=== PATIENT | female | born 1995 | race Caucasian/White ===

== ENCOUNTER 2023-09-02 01:57 | Emergency (ER) | payer SELFPAY ==
--- NOTE | ~2023-09-02 | XR_ITS ---
EXAMINATION: XR ANKLE, RIGHT CLINICAL INFORMATION: Rule out ankle fracture COMPARISON: None available. TECHNIQUE: AP, lateral, and mortise views of the right ankle. FINDINGS: Osseous alignment is anatomic. No acute fracture is seen. No significant focal soft tissue abnormality identified. XR/XR ankle RT min 3V IMPRESSION: No acute findings.
[2023-09-02 02:01] VITALS: BP 111/75; PULSE 91; RESP 16; TEMP 36.7; O2SAT 98; BMI 18.5
[2023-09-02 02:16] VITALS: BP 97/62; PULSE 54; PULSE 55; RESP 16; O2SAT 98
--- NOTE | 2023-09-02 03:58 | ED.LOWEXIN ---
HPI - Extremity Injury (Lower) General Chief Complaint: Extremity Injury, Lower Stated Complaint: Ankle inj Time Seen by Provider: 09/02/23 03:00 Source: patient Mode of arrival: ambulatory Limitations: no limitations History of Present Illness HPI Narrative: Patient comes to the emergency room complaining of right ankle pain on the inner aspect. Patient states that she was working at [employer], stripped over some boxes. Patient complaining of right ankle pain on the anterior aspect, states she is able to bear weight, no other injuries. 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 Related Data Previous Rx's Medication Instructions Recorded ibuprofen 600 mg tablet 600 mg PO Q6H PRN fever or pain 09/02/23 #20 tabs Allergies Allergy/AdvReac Type Severity Reaction Status Date / Time Penicillins Allergy Muscle Pain Verified 09/02/23 02:09 tramadol Allergy Shortness Verified 09/02/23 02:09 of Breath Review of Systems Review of Systems: Constitutional : No Weight loss, No Fever, No Chills, No Night Sweats, No Fatigue, No Malaise ENT/Mouth : No Hearing loss, No Ear Pain, No Nasal Congestion, No Sinus Pain, No Hoarseness, No sore throat, No Rhinorrhea, No Swallowing Difficulty Eyes: No Eye Pain, No Swelling, No Redness, No Foreign Body, No Discharge, No Vision Changes Cardiovascular : No Chest Pain, No SOB, No Dyspnea on Exertion, No Orthopnea, No Edema, No Palpitations Respiratory : No Cough, No Sputum, No Wheezing, No Smoke Exposure, No Dyspnea Gastrointestinal : No Nausea, No Vomiting, No Diarrhea, No Constipation, No abdominal Pain, No Hematochezia, No Melena Genitourinary : no irregular bleeding, No Dysuria, No Urinary Frequency, No Hematuria, No Urinary Incontinence, No Urgency, No Flank Pain, No Urinary Flow Changes, No Hesitancy Musculoskeletal : Complaining of right ankle pain on the inner aspect, No Myalgias, No Joint Swelling Skin : No Skin Lesions, No rash Neuro : No Weakness, No Numbness, No Paresthesias, No Loss of Consciousness, No Dizziness, No Headache Psych : No Anxiety/Panic, No Depression, No SI/HI/AH/VH, No Social Issues, Heme/Lymph: No Bruising, No Bleeding,No Lymphadenopathy Endocrine : No Polyuria, No Polydipsia, No Temperature Intolerance PMFSH Social History Social History Smoked in Last 30 Days: No Use of substances other than those prescribed or required for medical reasons: No Advance Directives: No Advance Directives Information Provided: No Physical Exam Vital Signs: Vital Signs: Last Vital Signs Temp 98.0 F 09/02/23 02:01 Pulse 54 09/02/23 02:16 Resp 16 09/02/23 02:16 BP 97/62 09/02/23 02:16 Pulse Ox 98 09/02/23 02:16 O2 Del Method Room Air 09/02/23 02:16 BMI result Body Mass Index 18.5 Const: Other: Appearance: Alert. Oriented X3. No acute distress. Eyes: Pupils equal, round and reactive to light. ENT: Pharynx normal. Neck: Normal inspection. Neck supple. No lymph nodes noted. No crepitus CVS: Normal heart rate and rhythm. Pulses normal. Normal S1 and S2 Respiratory: No respiratory distress. Breath sounds normal. No Wheezing. No rales Abdomen: Soft and nontender. No rigidity. No distention. Skin: Skin warm and dry. Normal skin color. Normal skin turgor. Extremities: No lower extremity edema. No Lacerations. No Rash right ankle is not swollen, not erythematous, no pain to palpation over the lateral malleolus, minimal pain over the medial malleolus, patient ambulatory. Neuro: Oriented X 3. No motor deficit. No sensory deficit. Moving all extremities. No slurred speech. CN 2 through 12 grossly intact Psych: calm, cooperative, normal affect Medical Decision Making Medical Decision Making MDM Narrative: -patient able to bear weight -my interpretation of ankle x-ray : no fracture -patient given ibuprofen Recommendations: RICE and follow-up with her connections patient does not need crutches Differential Diagnosis Differential Diagnoses: The differential diagnosis associated with the presentation includes (Ankle dislocation, fracture, sprain) Independent Interpretation I performed an independent interpretation of an: Plain X-Ray Radiology Impression Discussion of test interpretation with radiology: I have reviewed the radiologist's reading. Radiologist Impression: On arrival, patient had no pulse and not breathing spontaneously. CPR was started immediately, patient intubated. Discharge Plan Discharge Clinical Impression: Ankle sprain Patient Disposition: Home, Self-Care Instructions: Ankle Sprain (ED) Additional Instructions: Please follow-up with your primary care physician tomorrow. If you have any worsening or new symptoms, please return to the emergency room or call 911 Prescriptions: New ibuprofen 600 mg tablet 600 mg PO Q6H PRN (Reason: fever or pain) Qty: 20 0RF Referrals: Zane Peace MD [Physician] - 09/03/23 Stand Alone Forms: Work/School Release
[2023-09-02] MEDS: Ibuprofen 600 MG TABLET PO (04:14)
== END 2023-09-02 04:16 | disposition home or self-care (01) ==
PROVIDERS: Emergency Provider Emergency Medicine
DX: S93.401A Sprain of unspecified ligament of right ankle, initial encounter (principal); W01.0XXA Fall on same level from slipping, tripping and stumbling without subsequent striking against object, initial encounter; Y93.9 Activity, unspecified; Y92.9 Unspecified place or not applicable; Y99.0 Civilian activity done for income or pay
CPT/HCPCS: 73610; 99283; 99284

== ENCOUNTER 2024-01-06 05:58 | Emergency (ER) | payer BC, SELFPAY ==
[2024-01-06 06:06] VITALS: BP 107/35; PULSE 56; RESP 20; TEMP 36.4; O2SAT 99; BMI 19.9
--- NOTE | 2024-01-06 07:05 | PC.NURSE ---
pt is sleepy but awakes to voice command, respirations even and unlabored, pt denies pain at this time , pt awating doctor evaluation,
--- NOTE | 2024-01-06 07:39 | ED.GENADULT ---
HPI - General Adult General Chief complaint: General Medical Stated complaint: possible pulled muscle Time Seen by Provider: 01/06/24 07:25 Source: patient and RN notes reviewed Mode of arrival: ambulatory Limitations: no limitations History of Present Illness HPI narrative: This is a 28-year-old female, with no known medical problems, presenting to the emergency department for evaluation of abdominal pain x3 days. Patient states that she believes that she overworked herself at the gym is now sore. She states that initially she felt soreness in her abdomen, however states that this is since progressed and has become more painful. She also endorses increased fatigue, states that she has been sleeping for over 14 hours which is atypical of her. She denies any fevers, chills, chest pain, shortness of breath, nausea, vomiting or diarrhea. She does endorse some constipation. No urinary symptoms. No other complaints or concerns at this time. MD complaint: Abdominal pain Onset (ago): day(s) Radiation: non-radiation Relieving factors: none Exacerbating factors: none Associated symptoms: denies other symptoms Treatments prior to arrival: none Related Data Previous Rx's Medication Instructions Recorded ibuprofen 600 mg tablet 600 mg PO Q6H PRN fever or pain 09/02/23 #20 tabs cefuroxime axetil 250 mg tablet 250 mg PO BID 7 days #14 tabs 01/06/24 Allergies Allergy/AdvReac Type Severity Reaction Status Date / Time Penicillins Allergy Muscle Pain Verified 01/06/24 06:06 tramadol Allergy Shortness Verified 01/06/24 06:06 of Breath Review of Systems Review of Systems: Yes all other systems are reviewed and are negative Constitutional: Constitutional: Reports as per [facility] Past Medical History Attestation statement: The following information was validated with the patient. Social History Social History Advance Directives: No Advance Directives Information Provided: No Physical Exam ED Vital Signs: Vital Signs - 24 hr 01/06/24 06:06 01/06/24 08:49 Temperature 97.6 F 97.9 F Pulse Rate 56 48 L Respiratory Rate 20 15 Blood Pressure 107/35 L 97/44 L Pulse Oximetry 99 99 Oxygen Delivery Method Room Air Room Air BMI result Body Mass Index 19.9 Const General: cooperative, comfortable and no acute distress Orientation/consciousness: patient oriented x3 Limitations: no limitations HENMT Head: Yes normal to inspection, Yes normocephalic and Yes atraumatic Ears: hearing grossly normal bilaterally General nose exam: Normal external nose present Face and sinus: Yes normal facial exam Mouth: Normal oral and palatal mucosa present, oropharynx normal and moist mucous membranes Throat: Yes posterior oropharynx normal Eyes General: appearance normal, both eyes and all related structures Eyelids: Yes eyelids normal Conjunctivae: conjunctivae normal Sclerae: sclerae normal Pupils: Equal, round and reactive pupils present EOM: EOMs intact bilaterally Neck Neck: Yes normal visual inspection, Yes full ROM and Yes no lymphadenopathy Lymphatic: no lymphadenopathy noted Chest Chest palpation & inspection: normal inspection of the chest Resp Effort & Inspection: normal respiratory effort and able to speak in complete sentences Auscultation: clear to auscultation bilaterally, no crackles, no rales, no rhonchi and no wheezes Cardio Rate: regular rate Rhythm: regular rhythm Heart sounds: S1 normal heart sound present and S2 normal heart sound present GI Other: Mild tenderness palpation in the epigastrium, no right upper quadrant pain Inspection: Yes normal to inspection Skin General skin exam: no rashes or lesions noted Trauma: no lacerations or abrasions Wounds: no wounds Neuro General: patient oriented x3 and moves all extremities Cranial nerves: Yes Equal, round and reactive pupils present Extrem General: Yes normal to inspection Right upper extremity: normal to inspection Left upper extremity: normal to inspection Right lower extremity: normal to inspection Left lower extremity: normal to inspection Course Reevaluation(s) Reevaluation #1: Labs returned, no leukocytosis, stable H&H, CPK within normal limits. Urine does appear to be infected, will treat with course of antibiotics. Symptoms likely due to typical muscle strains after having worked out as well as urinary tract infection. Discussed this with patient, she understands and agrees with plan. Patient stable for discharge. Time: 08:31 Medical Decision Making Medical Decision Making MDM Narrative: This is a 28-year-old female, with no known medical problems, presenting to the emergency department with complaints of abdominal pain. On arrival, patient mildly hypotensive at 107/35, all the vital signs within normal limits. She is alert and oriented. Tenderness palpation along the epigastrium, no right upper quadrant pain. Differential diagnoses include rhabdomyolysis, abdominal muscle strain, spasm, UTI. Plan: Labs, viral swabs, UA Differential Diagnosis Differential Diagnoses: The differential diagnosis associated with the presentation includes See above Lab Data MDM Lab Attestation statement: I reviewed the patient's lab results. No leukocytosis, stable H&H, chemistry nondiagnostic, alk-phos 35, CPK 61, she has not , urine appears to be infected 01/06/24 07:53 01/06/24 07:53 Labs: Lab Results 01/06/24 01/06/24 Range/Units 07:53 07:58 WBC 4.7 L (4.8-10.8) X10*3/uL RBC 3.87 L (4.20-5.50) X10*6/uL Hgb 12.0 (12.0-16.0) g/dl Hct 36.0 L (37.0-47.0) % MCV 93.0 (80.0-98.0) fL MCH 31.0 (27.0-33.0) pg MCHC 33.3 (31.0-35.0) g/dl RDW 12.6 (11.0-16.0) % Plt Count 202 (160-400) X10*3/uL MPV 9.6 (9.4-12.3) fL Immature Gran % (Auto) 0.2 (0.0-0.4) % Neut % (Auto) 40.9 L (45-73) % Lymph % (Auto) 43.5 H (20-40) % [place] % (Auto) 12.4 H (2-11) % Eos % (Auto) 1.9 (0-4) % Baso % (Auto) 1.1 (0-2) % Lymph # (Auto) 2.0 (1.2-4.9) X10*3/uL [place] # (Auto) 0.6 (0.1-1.2) X10*3/uL Eos # (Auto) 0.1 (0.0-0.4) X10*3/uL Baso # (Auto) 0.1 (0.0-0.2) X10*3/uL Abs Immat Gran (auto) 0.01 (0.00-0.03) X10*3/uL Absolute Neuts (auto) 1.9 L (2.0-8.3) x10*3/uL Absolute Nucleated RBC 0.000 (0.0-0.012) X10*3/uL Nucleated RBC % (auto) 0.0 (0.0-0.2) /100WBC Sodium 139 (135-145) mmol/L Potassium 4.0 (3.3-5.1) mmol/L Chloride 109 H (96-108) mmol/L Carbon Dioxide 25 (22-29) mmol/L Anion Gap 9 L (12-20) BUN 17 H (9-16) mg/dL Creatinine 0.74 (0.5-1.4) mg/dL Estim Creat Clear Calc 112.5 Estimated GFR > 60 Random Glucose 100 (60-115) mg/dL Calcium 9.1 (8.4-10.2) mg/dL Magnesium 2.0 (1.6-2.6) mg/dL Total Bilirubin 0.4 (0.0-1.0) mg/dL AST 17 (5-31) U/L ALT 16 (0-31) U/L Alkaline Phosphatase 35 L (39-117) U/L Total Creatine Kinase 61 (26-140) U/L Total Protein 6.7 (6.5-8.0) g/dL Albumin 3.8 (3.5-5.0) g/dL Lipase 22 (8-78) U/L Beta HCG, Quant < 2 mIU/mL Urine Color Yellow Urine Appearance Cloudy Urine pH 6.0 (5.0-9.0) Ur Specific [place] 1.025 (1.005-1.025) Urine Protein Negative (Neg-Trace) mg/dL Urine Glucose (UA) Negative (Negative) mg/dL Urine Ketones Negative (Negative) mg/dL Urine Blood Negative (Negative) Urine Nitrite Negative (Negative) Ur Leukocyte Esterase Moderate (2+) H (Negative) Urine RBC 0-2 (0-2) /HPF Urine WBC >50 H (0-5) /HPF Ur Squamous Epith Cells 0-2 (0-2) /HPF Urine Bacteria Trace (None Seen) Hyaline Casts 0-2 (0-2) /LPF COVID-19 (MICHEAL) Negative (Negative) COVID-19 Clin Com See Note Influenza Type A (JO ANN) Negative (Negative) Influenza Type B (JO ANN) Negative (Negative) Influenza A & B Note See Note Discharge Plan Discharge Clinical Impression: Abdominal wall strain, UTI (urinary tract infection) Patient Disposition: Home, Self-Care Instructions: Muscle Strain (ED), Urinary Tract Infection in Women (ED) Additional Instructions: You were seen in the emergency department after having pain in your abdomen. You likely over did it at the gym causing you to have this soreness. Your urine does appear to be infected, I am treating you for urinary tract infection, please take entire course even if you are feeling better. Your other blood work is reassuring. You tested negative for COVID and flu today. Drink plenty of fluids get plenty of rest. If any new or worsening symptoms occur including but not limited to worsening abdominal pain, chest pain, shortness of breath, fevers, chills, nausea, vomiting, or other concerning symptoms, please return for re-evaluation. Prescriptions: New cefuroxime axetil 250 mg tablet 250 mg PO BID 7 Days Qty: 14 0RF No Action ibuprofen 600 mg tablet 600 mg PO Q6H PRN (Reason: fever or pain) Qty: 20 0RF Stand Alone Forms: Work/School Release
[2024-01-06 07:56] LABS: MANUAL DIFF FLAG NO
[2024-01-06 07:57] LABS: Basophils Absolute Auto 0.1 X10*3/uL (0.0-0.2); Basophils Percent Auto 1.1 % (0-2); Eosinophils Absolute Auto 0.1 X10*3/uL (0.0-0.4); Eosinophils Percent Auto 1.9 % (0-4); Imm Gran Abs Auto 0.01 X10*3/uL (0.00-0.03); Imm Gran Pct Auto 0.2 % (0.0-0.4); Lymphocytes Percent Auto 43.5 % (20-40); Mean Corpuscular HGB Conc 33.3 g/dl (31.0-35.0); Mean Platelet Volume 9.6 fL (9.4-12.3); Monocytes Absolute Auto 0.6 X10*3/uL (0.1-1.2); Monocytes Percent Auto 12.4 % (2-11); Neutrophils Absolute Auto 1.9 x10*3/uL (2.0-8.3); Neutrophils Percent Auto 40.9 % (45-73); Platelet Count 202 X10*3/uL (160-400); Red Blood Count 3.87 X10*6/uL (4.20-5.50); Red Cell Distribution Width 12.6 % (11.0-16.0); White Blood Count 4.7 X10*3/uL (4.8-10.8)
[2024-01-06 08:05] LABS: Appearance Urine Cloudy; Color Urine Yellow; Glucose Urine UA Negative (Negative); Leukocyte Esterase Urine Moderate (2+) (Negative); Nitrite Urine Negative (Negative); Specific Gravity - Urine 1.025 (1.005-1.025); UMIC TRIGGER UACC YES; Urine Blood Negative (Negative); Urine Ketones Negative (Negative); Urine Protein Negative (Neg-Trace)
[2024-01-06 08:10] LABS: Bacteria Urine Trace (None Seen); Hyaline Casts Urine 0-2 /LPF (0-2); RBC Urine 0-2 /HPF (0-2); Squamous Epithelial Cell Urine 0-2 /HPF (0-2); UACC Culture Trigger YES; WBC Urine >50 /HPF (0-5)
[2024-01-06 08:17] LABS: Alanine Aminotransferase 16 U/L (0-31); Albumin Level 3.8 g/dL (3.5-5.0); Alkaline Phosphatase 35 U/L (39-117); Anion Gap 9 (12-20); Aspartate Amino Transferase 17 U/L (5-31); Bilirubin Total 0.4 mg/dL (0.0-1.0); Blood Urea Nitrogen 17 mg/dL (9-16); Calcium 9.1 mg/dL (8.4-10.2); Carbon Dioxide 25 mmol/L (22-29); Chloride 109 mmol/L (96-108); Creatinine Clr Calc Pharmacy 112.5; Estimated Glomerular Filt Rate > 60; Glucose Random 100 mg/dL (60-115); Lipase 22 U/L (8-78); Sodium 139 mmol/L (135-145); Total Protein 6.7 g/dL (6.5-8.0)
[2024-01-06 08:19] LABS: HCG Quantitative < 2 mIU/mL
[2024-01-06 08:22] LABS: COVID-19 Test Negative (Negative); IDNOW Serial# 16C4AD1C; IDNOW Serial# 55D5AD1C; Influenza A Negative (Negative); Influenza B2 Negative (Negative)
[2024-01-06 08:49] VITALS: BP 97/44; PULSE 48; RESP 15; TEMP 36.6; O2SAT 99
[2024-01-06 10:16] VITALS: BP 99/52; PULSE 56; RESP 15; O2SAT 97
== END 2024-01-06 10:32 | disposition home or self-care (01) ==
PROVIDERS: Physician Assistant Medical; Emergency Provider Emergency Medicine
DX: S39.011A Strain of muscle, fascia and tendon of abdomen, initial encounter (principal); N39.0 Urinary tract infection, site not specified; X58.XXXA Exposure to other specified factors, initial encounter; Y93.9 Activity, unspecified; Y92.9 Unspecified place or not applicable; Y99.9 Unspecified external cause status; Z11.52 Encounter for screening for COVID-19
CPT/HCPCS: 80053; 81001; 82550; 83690; 83735; 84702; 85025; 87086; 87502; 87635; 99283; 99284

== ENCOUNTER 2024-05-30 17:49 | Emergency (ER) | payer OTHER, BC, SELFPAY ==
--- NOTE | ~2024-05-30 | XR_ITS ---
EXAMINATION: XR WRIST, LEFT CLINICAL INFORMATION: Work injury. COMPARISON: None available. TECHNIQUE: PA, lateral, and oblique views of the left wrist. FINDINGS: Mild cortical irregularity along the radial aspect of the scaphoid body which likely represents normal variation. No displaced fracture. No dislocation. Normal carpal alignment. No joint space narrowing or marginal osteophytes. No osseous erosion. No abnormal soft tissue calcification. Mild ulnar-sided soft tissue swelling. XR/XR wrist LT min 3V IMPRESSION: 1. Mild ulnar-sided soft tissue swelling. No displaced fracture or dislocation. 2. Mild cortical irregularity along the radial aspect of the scaphoid body which likely represents normal variation.
[2024-05-30 17:56] VITALS: BP 119/55; PULSE 66; RESP 16; TEMP 36.8; O2SAT 98; BMI 20.1
[2024-05-30 18:00] VITALS: BP 102/59; PULSE 56; RESP 16; TEMP 36.4; O2SAT 98
--- NOTE | 2024-05-30 19:53 | ED_ITS ---
HPI - Extremity Problem General Chief complaint: Extremity Injury, Upper Stated complaint: left arm pain/wc Time Seen by Provider: 05/30/24 19:53 Source: patient Mode of arrival: ambulatory Limitations: no limitations History of Present Illness ED Provider: Angeline Olivo PA-C HPI Narrative: Patient is a 28 year old assigned female at with no reported medical history presenting to the emergency department today with left wrist pain. Patient states that she works for [employer] and earlier this morning a large box fell onto her hand / wrist. Patient states that she is having left wrist pain that shoots down into her arm. Patient denies any dizziness, lightheadedness, abdominal pain, nausea, vomiting, fever, chills, blurry vision, double vision, loss of vision, chest pain, difficulty breathing, shortness of breath, back pain, night sweats, pain with urination, increased urinary frequency, increased urinary urgency, blood in her urine or stool, syncope or a near syncopal episod e, bowel incontinence, bladder incontinence, or any other complaints at this time. MD Complaint: extremity pain Onset (ago): hour(s) Location: left and upper extremity Severity scale (1-10): 4 Radiation: proximal Relieving factors: nothing Exacerbating factors: range of motion Associated symptoms: denies other symptoms Related Data Previous Rx's ?Medication ?Instructions ?Recorded ibuprofen 600 mg tablet 600 mg PO Q6H PRN fever or pain 09/02/23 #20 tabs cefuroxime axetil 250 mg tablet 250 mg PO BID 7 days #14 tabs 01/06/24 Allergies Allergy/AdvReac Type Severity Reaction Status Date / Time Penicillins Allergy Muscle Pain Verified 05/30/24 17:58 tramadol Allergy Shortness Verified 05/30/24 17:58 of Breath Review of Systems Constitutional: Constitutional: Reports no additional constitutional complaints, Denies chills, Denies fever(s) and Denies night sweats Eyes: Eyes: Reports no additional eye complaints, Denies blurry vision, Denies change in vision, Denies diplopia, Denies eye discharge, Denies loss of vision and Denies eye pain ENT: Denies dizziness Cardiovascular: Cardiovascular: Reports no additional cardiovascular complaints, Denies chest pain, Denies lightheadedness, Denies Loss of Consciousness and Denies dyspnea Respiratory: Respiratory: Reports no additional respiratory complaints and Denies dyspnea Gastrointestinal: Gastrointestinal: Reports no additional gastrointestinal complaints, Denies abdominal pain, Denies melena, Denies hematochezia, Denies change in bowel habits and Denies change in stool character Genitourinary: Genitourinary: Denies hematuria, Denies urinary frequency, Denies dysuria, Denies urinary incontinence, Denies urinary hesitancy and Denies urinary urgency Musculoskeletal: Musculoskeletal: Reports no additional musculoskeletal complaints, Denies numbness and Denies tingling Comments: left hand / wrist pain Neurologic: Denies dizziness, Denies loss of vision, Denies numbness and Denies tingling Psychiatric: Psychiatric: Reports no additional psychiatric complaints Endocrine: Endocrine: Reports no additional endocrine complaints Hematologic/Lymphatic: Hematologic/Lymphatic: Reports no additional hematologic/lymphatic complaints Allergic/Immunologic: Allergic/Immunologic: Reports no additional allergic/immunologic complaints PMFSH Past Medical History Attestation statement: The following information was validated with the patient. Source: old records reviewed and nursing notes reviewed Social History Social History Alcohol intake: current Alcohol intake frequency: a few times a week Alcohol type: beer Advance Directives: No Advance Directives Information Provided: No Physical Exam Vital Signs: Vital Signs: Last Vital Signs Temp 97.5 F 05/30/24 18:00 Pulse 56 05/30/24 18:00 Resp 16 05/30/24 18:00 BP 102/59 L 05/30/24 18:00 Pulse Ox 98 05/30/24 18:00 O2 Del Method Room Air 05/30/24 18:00 BMI result Body Mass Index 20.1 Const: General: cooperative, no acute distress, alert and awake Nutritional Appearance: well nourished Orientation/consciousness: patient oriented x3 Limitations: no limitations HEENT: Head: Yes normal to inspection and Yes atraumatic Ears: hearing grossly normal bilaterally and external ears normal General nose exam: Normal external nose present, no nasal discharge noted and no epistaxis Face and sinus: Yes normal facial exam, No abrasion and No laceration Mouth: Normal oral and palatal mucosa present, no drooling and no muffled voice Eyes: General: appearance normal, both eyes and all related structures Periorbital: periorbital findings normal Eyelids: Yes eyelids normal Conjunctivae: conjunctivae normal Pupils: Equal, round and reactive pupils present EOM: EOMs intact bilaterally Neck: Neck: Yes normal visual inspection, Yes full ROM and Yes no lymphadenopathy Chest: Chest palpation & inspection: normal inspection of the chest Resp: Effort & Inspection: normal respiratory effort and able to speak in complete sentences GI: Inspection: Yes normal to inspection Neuro: General: patient oriented x3 and moves all extremities Cranial nerves: Yes Equal, round and reactive pupils present Cognition (Neuro): n ormal cognition Extrem: Other: pain with palpation of the left snuff box that radiates into the upper left arm General: Yes normal to inspection, Yes full ROM and Yes capillary refill normal Psych: Appearance: grossly normal Mental Status: mental status grossly normal Affect: normal affect Attitude: cooperative Thought process: Normal thought process present Thought content: Normal thought content present Insight: Good insight present (Psych) Medical Decision Making Medical Decision Making MDM Narrative: Patient is a 28 year old assigned female at with no reported medical h istory presenting to the emergency department today with left wrist pain. Patient's physical exam was as noted in the physical exam portion of this note. Patient's left wrist x-ray showed no acute process but note mild cortical irregularity along the radial aspect of the scaphoid that could be a normal variation. Given the patient's mechanism of injury, will treat as an acute scaphoid injury. I explained my physical exam findings as well as all test results to the patient. I answered all questions asked by the patient. Patient's left wrist was placed in a thumb spica splint, without incident. Patient's PMS was intact prior to and after splint placement. I stressed the importance of the patient taking her medication as directed (either prescribed or as the over the counter packaging recommends). I stressed the importance of the patient following up with her primary care provider, an orthopedic provider, and work connection. I stressed the importance of the patient returning to the emergency department immediately if her symptoms were to worsen or if she were to develop any dizziness, shortness of breath, difficulty breathing, chest pain, blurry vision, loss of vision, nausea, vomiting, abdominal pain, fever, chills, back pain, or any other complaints. Patient verbalized agreement and understanding with this treatment plan and discharge. Differential Diagnosis Differential Diagnoses: The differential diagnosis associated with the presentation includes Left wrist sprain Left wrist strain Left scaphoid injury Admission/Observation Consideration of admission/observation: Escalation of care including admission/observation considered Patient would have been admitted to the hospital had her work up had any findings where hospital admission was appropriate and her clinical presentation warranted hospital admission. Independent Interpretation I performed an independent interpretation of an: Plain X-Ray Interpretation: My interpretation is in agreement with the radiologist's impression of this imaging study. EXAMINATION: XR WRIST, LEFT CLINICAL INFORMATION: Work injury. COMPARISON: None available. TECHNIQUE: PA, lateral, and oblique views of the left wrist. FINDINGS: Mild cortical irregularity along the radial aspect of the scaphoid body which likely represents normal variation. No displaced fracture. No dislocation. Normal carpal alignment. No joint space narrowing or marginal osteophytes. No osseous erosion. No abnormal soft tissue calcification. Mild ulnar-sided soft tissue swelling. XR/XR wrist LT min 3V IMPRESSION: 1. Mild ulnar-sided soft tissue swelling. No displaced fracture or dislocation. 2. Mild cortical irregularity along the radial aspect of the scaphoid body which likely represents normal variation. Dictated By: Corona Bridges MD Signed By: Electronically signed by Corona Bridges MD 05/30/241948 Radiology Impression Discussion of test interpretation with radiology: I have reviewed the radiologist's reading. Procedures Orthopedic Splinting/Casting Injury #1: Side: left Upper Extremity Injury Location: wrist Upper Extremity Immobilizer: sugar tong splint Discharge Plan Discharge Clinical Impression: Sprain of wrist Patient Disposition: Home, Self-Care Instructions: Wrist Sprain (ED) Additional Instructions: Follow up with your primary care provider, work connection, and an orthopedic provider. Return to the emergency department immediately if your symptoms worsen or if you develop any dizziness, shortness of breath, difficulty breathing, chest pain, blurry vision, loss of vision, nausea, vomiting, abdominal pain, fever, chills, back pain, or any other complaints. Prescriptions: No Action ibuprofen 600 mg tablet 600 mg PO Q6H PRN (Reason: fever or pain) Qty: 20 0RF cefuroxime axetil 250 mg tablet 250 mg PO BID 7 Days Qty: 14 0RF Referrals: [facility] [place] [facility] [Provider Group] (Call to establish and follow up with a primary care provider. If you already have a primary care provider, please follow up with them.) [facility] [place] [facility] [Provider Group] [facility] [place] [facility] [Provider Group] [facility] [place] [facility] [Provider Group] (Call to establish and follow up with an orthopedic provider.) [facility] [Provider Group] (Call to establish and follow up with a work connection.) Stand Alone Forms: Work/School Release Print Language: Vietnamese
[2024-05-30 20:29] VITALS: BP 102/59; PULSE 56; RESP 16; TEMP 36.4; O2SAT 98
== END 2024-05-30 20:30 | disposition home or self-care (01) ==
PROVIDERS: Emergency Provider Emergency Medicine
DX: S63.502A Unspecified sprain of left wrist, initial encounter (principal); W23.0XXA Caught, crushed, jammed, or pinched between moving objects, initial encounter; Y93.89 Activity, other specified; Y92.59 Other trade areas as the place of occurrence of the external cause; Y99.0 Civilian activity done for income or pay
CPT/HCPCS: 29125; 73110; 99283